=== PATIENT | female | born 1960 | race Two or more races ===

== ENCOUNTER 2020-08-05 10:00 | Outpatient (CLI) | payer OTHER | END 2020-08-05 11:11 | disposition home or self-care (01) | LOC: LAB 10:00 → EDSTATUS 08-12 11:40 → AMB-ENDOS 08-12 13:36 | PROVIDERS: ATTEND Surgery | DX: K57.20 Diverticulitis of large intestine with perforation and abscess without bleeding (principal); Z03.818 Encounter for observation for suspected exposure to other biological agents ruled out; R19.4 Change in bowel habit; Z93.3 Colostomy status ==

== ENCOUNTER 2021-02-03 05:53 | Day surgery (SDC) | payer OTHER | END 2021-02-03 09:30 | disposition home or self-care (01) | LOC: AMB-ENDOS 05:53 | PROVIDERS: ATTEND Surgery | DX: K62.89 Other specified diseases of anus and rectum (principal); Z93.3 Colostomy status; Z20.822 Contact with and (suspected) exposure to COVID-19 ==

== ENCOUNTER 2021-04-15 09:45 | Inpatient (IN) | payer OTHER ==
[~2021-04-15] VITALS: Ht 152.4 cm; Wt 90.7 kg
[2021-04-15] MEDS ORDERED: LOSARTAN-HCTZ1 EAC2 PO (12:32)
[2021-04-15] MEDS ORDERED: SYNTHROID175 MCG PO (12:33)
[2021-04-20] MEDS ORDERED: INTESTINEX680 M1 PO (13:35)
[2021-04-20] MEDS ORDERED: HYOSCYAMINE0.125 M1 SL (13:35)
[2021-04-20] MEDS ORDERED: OXYC1TAB9 PO (13:35)
[2021-04-20] MEDS ORDERED: PANTOPRAZOLE SO40 MG PO (13:36)
== END 2021-04-20 14:30 | disposition home or self-care (01) | DRG 331 ==
LOC: SURH 04-16 09:27 → O/R 04-16 09:27 → SURH 04-16 09:45
PROVIDERS: Obstetrics & Gynecology Gynecologic Oncology; ADMIT Surgery; ATTEND Surgery
PROC: 0DTP4ZZ Resection of Rectum, Percutaneous Endoscopic Approach (ICD-10-PCS; 2021-04-16)
PROC: 0UT9FZZ Resection of Uterus, Via Natural or Artificial Opening With Percutaneous Endoscopic Assistance (ICD-10-PCS; 2021-04-16)
PROC: 07BC4ZZ Excision of Pelvis Lymphatic, Percutaneous Endoscopic Approach (ICD-10-PCS; 2021-04-16)
PROC: 0UT2FZZ Resection of Bilateral Ovaries, Via Natural or Artificial Opening With Percutaneous Endoscopic Assistance (ICD-10-PCS; 2021-04-16)
PROC: 0UT7FZZ Resection of Bilateral Fallopian Tubes, Via Natural or Artificial Opening With Percutaneous Endoscopic Assistance (ICD-10-PCS; 2021-04-16)
PROC: 3E0F7SF Introduction of Other Gas into Respiratory Tract, Via Natural or Artificial Opening (ICD-10-PCS; 2021-04-16)
PROC: 0D1N4Z4 Bypass Sigmoid Colon to Cutaneous, Percutaneous Endoscopic Approach (ICD-10-PCS; principal; 2021-04-16 06:30)
PROC: 0DTN4ZZ Resection of Sigmoid Colon, Percutaneous Endoscopic Approach (ICD-10-PCS; 2021-04-16 06:30)
DX: K57.20 Diverticulitis of large intestine with perforation and abscess without bleeding (principal); N85.00 Endometrial hyperplasia, unspecified; N73.6 Female pelvic peritoneal adhesions (postinfective); E03.8 Other specified hypothyroidism; I10 Essential (primary) hypertension; D12.0 Benign neoplasm of cecum; Z20.822 Contact with and (suspected) exposure to COVID-19